=== PATIENT | female | born 1960 | race Two or more races ===

== ENCOUNTER 2020-07-18 01:49 | Emergency (ER) | payer SELFPAY ==
[~2020-07-18] VITALS: Ht 172.7 cm; Wt 81.6 kg
--- NOTE | 2020-07-18 02:20 | NUR ---
ED Nurse Note: pt walked into the ed due to high bp of 159/138, left arm and neck pain that rad to the back. pt is A&Ox4, ambulates, and no sob. pt is on monitor; bp 157/98 Hr 69 RR 20 O2 100%. iv started; blood drawn and sent to the lab. pt denied dizzness and headache. we will keep monitoring the pt
--- NOTE | 2020-07-18 02:34 | Emergency Room Report ---
History of Present Illness General Chief Complaint: Pain Source: Patient Present Illness HPI Is a 60-year-old female who has a history of hypertension but not on medication because she does not have a doctor. She presents with chief complaint of neck and arm pain. This been ongoing for 4 days now. Pain is sharp in nature. Start her neck radiate to her arm. Worse with movement. Worse with movement of her neck. No chest pain. No nausea vomiting or diarrhea. No diaphoresis. No shortness of breath. Does have a slight headache. Pain is 7 out of 10. No exertional component. 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 Patient History Past Medical History: see triage record, old chart reviewed, HTN Past Surgical History: none Pertinent Family History: none Social History: Denies: smoking Last Menstrual Period: n/a Now: No : 0 Para: 0 Immunizations: other Reviewed Nursing Documentation: PMH: Agreed; PSxH: Agreed Nursing Documentation-PMH Past Medical History: No Stated History Review of Systems Eye: Denies: eye pain, blurred vision ENT: Denies: ear pain, nose congestion, throat swelling Respiratory: Denies: cough, shortness of breath Cardiovascular: Denies: chest pain, palpitations Gastrointestinal: Denies: abdominal pain, diarrhea, nausea, vomiting Musculoskeletal: Denies: back pain, joint pain Skin: Denies: rash Neurological: Denies: headache, numbness Endocrine: Denies: increased thirst, increased urine Hematologic/Lymphatic: Denies: easy bruising All Other Systems: negative except mentioned in HPI Physical Exam Vital Signs Date Time Temp Pulse Resp B/P (MAP) Pulse Ox O2 Delivery O2 Flow Rate FiO2 07/18/20 01:58 98.1 69 18 193/94 (127) 97 Room Air Vitals with high blood pressure Sp02 EP Interpretation: reviewed, normal General Appearance: well appearing, no apparent distress, alert Head: normocephalic, atraumatic Eyes: bilateral eye PERRL, bilateral eye EOMI ENT: hearing grossly normal, normal pharynx Neck: full range of motion, supple, no meningismus Respiratory: chest non-tender, lungs clear, normal breath sounds Cardiovascular #1: regular rate, rhythm, no murmur Gastrointestinal: normal bowel sounds, non tender, no mass, no organomegaly, no bruit, non-distended Musculoskeletal: back normal, normal range of motion, gait/station normal Psychiatric: mood/affect normal Medical Decision Making Diagnostic Impression: Primary Impression: Cervical radiculopathy, acute Additional Impression: Hypertension Qualified Codes: I10 - Essential (primary) hypertension ER Course This patient presents with neck pain radiating to her left arm. There is most likely her cervical radiculopathy. No evidence of ACS, PE, dissection to name a few. Blood pressure elevated but coming down. No evidence of endorgan damage. Will discharge home. EKG Diagnostic Results Troponin ordered: Yes Rate: normal Rhythm: NSR ST Segments: no acute changes Rhythm Strip Diag. Results EP Interpretation: yes Rate: 64 Last Vital Signs Date Time Temp Pulse Resp B/P (MAP) Pulse Ox O2 Delivery O2 Flow Rate FiO2 07/18/20 01:58 98.1 69 18 193/94 (127) 97 Room Air Status: improved Disposition: HOME, SELF-CARE Condition: Stable Scripts Ibuprofen* (MOTRIN*) 600 Mg Tablet 600 MG ORAL Q8H PRN for FOR PAIN, #30 TAB 0 Refills Prov: Venu Gutierrez MD 07/18/20 Amlodipine Besylate (Norvasc) 10 Mg Tablet 10 MG ORAL DAILY, #90 TAB Prov: Venu Gutierrez MD 07/18/20 Referrals: NOT CHOSEN IPA/,REFERRING (PCP) Additional Instructions: Follow-up with your doctor in 7 days. Return if symptoms worsen. Venu Gutierrez MD Jul 18, 2020 02:34
[2020-07-18] MEDS: Ketorolac 30mg Inj IV ONE (02:58)
[2020-07-18 03:09] VITALS: BP 157/78
[2020-07-18 03:09] LABS: BASOPHILS % (AUTO) 1.6 % (0.0-2.0); EOSINOPHILS % (AUTO) 1.8 % (0.0-3.0); HEMOGLOBIN 13.3 G/DL (12.0-16.0); LYMPHOCYTES % (AUTO) 35.9 % (20.0-45.0); MEAN CORPUSCULAR VOLUME 94 FL (80-99); MONOCYTES % (AUTO) 8.7 % (1.0-10.0); NEUTROPHILS % (AUTO) 52.1 % (45.0-75.0); PLATELET COUNT 150 K/UL (150-450); RED BLOOD COUNT 4.13 M/UL (4.20-5.40); RED CELL DISTRIBUTION WIDTH 14.8 % (11.6-14.8); WHITE BLOOD COUNT 5.8 K/UL (4.8-10.8)
[2020-07-18 03:22] LABS: ALANINE AMINOTRANSFERASE 40 U/L (12-78); ALBUMIN/GLOBULIN RATIO 1.1 (1.0-2.7); ALKALINE PHOSPHATASE 83 U/L (46-116); ASPARTATE AMINO TRANSFERASE 29 U/L (15-37); BILIRUBIN,TOTAL 0.4 MG/DL (0.2-1.0); BLOOD UREA NITROGEN 17 mg/dL (7-18); CALCIUM 9.6 MG/DL (8.5-10.1); CARBON DIOXIDE 28 MMOL/L (21-32)
[2020-07-18 03:40] LABS: CHLORIDE 104 MMOL/L (98-107); POTASSIUM 3.7 MMOL/L (3.5-5.1); SODIUM 138 MMOL/L (136-145)
[2020-07-18] MEDS ORDERED: IBUPROFEN600 M1 ORAL (03:45)
[2020-07-18] MEDS ORDERED: NORVASC10 MG ORAL (03:45)
[2020-07-18 03:52] VITALS: BP 149/89
--- NOTE | 2020-07-18 03:52 | NUR ---
ER DISCHARGE NOTE: Patient is cleared to be discharged per ERMD, pt is aox4, on room air, with stable vital signs. pt was given dc and prescription instructions, pt was able to verbalize understanding, pt id band and iv site removed without complications. pt is able to ambulate with steady gait. pt took all belongings.
== END 2020-07-18 03:52 | disposition home or self-care (01) ==
LOC: EMR 02:10
DX: M54.12 Radiculopathy, cervical region (principal); I10 Essential (primary) hypertension
CPT/HCPCS: 80053; 84484; 85025; 93005; 96374; 99284; J1885